=== PATIENT | male | born 1975 | race Caucasian/White ===

== ENCOUNTER → 2018-08-02 | Outpatient (CLI) | payer BC ==
--- NOTE | 2018-08-02 23:34 | CONS ---
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 The patient is coming in for a sleep apnea evaluation. This concern has been raised by his knowing that the patient snores and quits breathing on multiple occasions. He goes to bed around 11 p.m., wakes up 6:20 a.m. in the morning and he feels non refreshed, fatigued and tired during the day. His weight is up by around 10 pounds over the past 10 years. His current Roby score of 12. No history of any motor vehicle accident because of feeling drowsy or sleepy. He has never been involved in a car accident. He has not veered off the road because of feeling sleepy. No restlessness in lower extremities. No sleep paralysis. No hallucinations. No cataplexy. No other complaints in terms of his sleep in general. PAST MEDICAL HISTORY: 1. Chronic back pain. The patient has undergone pain shots and previous back surgery. 2. Hyperlipidemia. PAST SURGICAL HISTORY: Includes laminectomy L5-S1 and previous cortisone injection to his spine. DRUG ALLERGIES: NAPROSYN. OUTPATIENT MEDICATION: Includes Crestor and fenofibrate. SOCIAL HISTORY: Nonsmoker. No history of alcohol. No history of IV drugs. FAMILY HISTORY: Negative for sleep apnea. REVIEW OF SYSTEMS: Fourteen-point review of system was done and the positive findings are mentioned above in history of present illness. PHYSICAL EXAMINATION: His BP is 135/94, pulse 82, respirations 16, temp 98.3, saturation 96% on room air. Neck size is 18.5 inches, Roby score of 12. BMI 34.4, and height is 6 feet 1 inch. GENERAL APPEARANCE: Calm comfortable head is atraumatic, normocephalic. NECK: Supple. No JVD. No goiter or neck mass. Mallampati class IV. LUNGS: Clear to auscultation. HEART: Sounds regular rate and rhythm. Normal S1, S2. No S3. No murmur. ABDOMEN: Soft, nontender. No organomegaly. EXTREMITIES: No edema. No cyanosis or clubbing. NEUROLOGIC: Alert and oriented x3. No focal neurological deficits. PSYCHIATRIC: Negative for anxiety or depression. IMPRESSION: 1. Loud snoring. 2. Witnessed apneas. 3. Chronic fatigue and sleepiness Roby Score is at 12. 4. Obesity BMI 34.4. 5. Chronic back pain. 6. Hyperlipidemia. PLAN: 1. Encourage weight loss. 2. Implement good sleep hygiene measures. 3. Proceed with a home sleep study to investigate the patient for sleep breathing disorder and treat accordingly. YULY / TATI: [id number] /
== END ==
LOC: SLEEP 14:22
PROVIDERS: ATTEND Internal Medicine Critical Care Medicine
DX: R06.83 Snoring (principal); E66.01 Morbid (severe) obesity due to excess calories; G89.29 Other chronic pain; M54.9 Dorsalgia, unspecified; E78.5 Hyperlipidemia, unspecified; R06.81 Apnea, not elsewhere classified; R53.82 Chronic fatigue, unspecified; Z68.34 Body mass index [BMI] 34.0-34.9, adult; Z79.899 Other long term (current) drug therapy; Z88.8 Allergy status to other drugs, medicaments and biological substances
CPT/HCPCS: 99211

== ENCOUNTER → 2018-11-22 | Outpatient (CLI) | payer BC ==
--- NOTE | 2018-11-22 18:23 | PN ---
PROGRESS NOTE This is a compliancy check. This is a 43-year-old male patient diagnosed having severe symptomatic obstructive sleep apnea with an AHI of 30.4, worse in the supine body position. The patient was offered BiPAP therapy. I reviewed the CPAP titration closely. The patient underwent CPAP titration and he failed CPAP therapy, as the patient had a significant number of central apneas emerging while on CPAP along with sleep fragmentation and severe nocturnal oxygen desaturation. Ultimately he was switched to a BiPAP and currently has an auto BiPAP with a minimum pressure of 10, maximum pressure of 20, pressure support of 4. His treatment has been extremely successful and the patient improved. Today he is coming in for a compliancy check. He reports marked improvement in sleep quality. He is much more refreshed and alert during the day. He wakes up alert. No tiredness. No fatigue. Initially he was having some issues with his DreamWear [id number] mask. He was switched to an AirFit N10 nose mask. Furthermore, I offered him the Nuance nose gel pillows. On the compliance data, the patient has been averaging around 7.3 hours of CPAP use per night. His CPAP use for more than 4 hours is more than 80%. Average pressure of 15.2/11.2. His leak is improving. It was as high as 54 L/minute and is currently improved. AHI is down to 3.8. Tidal volume is at 560. He has no specific complaints and he feels great. REVIEW OF SYSTEMS: Fourteen-point review of systems was done. Positive findings are all mentioned above in the history of present illness. No recent weight gain. No tiredness or sleepiness during the day. He feels much more refreshed. No altered mentation. No headaches. No nausea. No heartburn. No chest pain. No shortness of breath. No palpitations. No other complaints otherwise. One issue only is development of some nasal congestion and purulent nasal drainage along with some facial pain that occurred over the past few days. This may be related to a component of acute sinus infection. He is not having any fever for now. PHYSICAL EXAMINATION: VITAL SIGNS: BP is 109/68, pulse 69, respirations 16. Saturation is 97% on room air. Temperature 98.1. [place] score is 4. Weight is 255. GENERAL APPEARANCE: Calm, comfortable. HEAD: Atraumatic, normocephalic. NECK: Supple. No JVD. No goiter or neck masses. LUNGS: Clear to auscultation. HEART: Heart sounds are regular rate and rhythm. Normal S1, S2. No S3, S4. No murmurs. ABDOMEN: Soft, nontender. No organomegaly. EXTREMITIES: No edema. No cyanosis or clubbing. NEUROLOGIC: The patient is alert and oriented x3. There are no focal neurological deficits. PSYCHIATRIC: Negative for anxiety or depression. IMPRESSION: 1. Severe obstructive sleep apnea with an apnea/hypopnea index of 30.4. The patient currently is undergoing successful CPAP therapy. 2. Chronic hypersomnia, improved. 3. Chronic back pain. 4. Hyperlipidemia. PLAN: Continue VPAP auto at the same setting. Compliance data was checked. Numbers look great. Patient is very compliant. Treatment is successful. No need for any pressure adjustments. Offer this patient Nuance nose gel pillows. Contact me back if there are any issues with CPAP therapy. Will see him back in a year's time in followup. MMODL / IJN: [id number] /
== END ==
LOC: SLEEP 15:18
PROVIDERS: ATTEND Internal Medicine Critical Care Medicine
DX: G47.33 Obstructive sleep apnea (adult) (pediatric) (principal); G89.29 Other chronic pain; M54.9 Dorsalgia, unspecified; E78.5 Hyperlipidemia, unspecified; Z99.89 Dependence on other enabling machines and devices

== ENCOUNTER 2019-03-17 12:59 | Day surgery (SDC) | payer BC ==
[2019-03-17] MEDS ORDERED: LACTATED RINGERS 1,000 ML IV ONE ×3 (14:42→23:19)
[2019-03-17] MEDS ORDERED: LIDOCAINE 1% 20 ML VIAL (10MG/ML) FOR IV START INTRADERMA ONE (14:42)
[2019-03-17] MEDS: ONDANSETRON 4 MG/2 ML VIAL IVP ONE (15:31)
[2019-03-17] MEDS ORDERED: DEXAMETHASONE SOD PHOSPHATE 10 MG/ML 1 ML VIAL IV ONE (15:31)
[2019-03-17] MEDS ORDERED: fentaNYL (PF) 50 MCG/ML 2 ML AMP IVP ONE ×2 (15:41→16:30)
[2019-03-17] MEDS ORDERED: MIDAZOLAM 2 MG/2 ML VIAL IVP ONE (16:27)
--- NOTE | 2019-03-17 17:00 | P.ANPRN ---
Procedure Note - Anesthesia - Nerve Block Performed Left Axillary Single Time Out Performed: Yes Date of Procedure: 03/17/19 Procedure Start Time: 16:26 Procedure Stop Time: 16:40 Location of Patient: PreOp Indication: Requested by Surgeon Specifically requested for management of pain by DrKatrina: Magen Davies Sedation Type: Sedate with meaningful contact maintained Preparation: Sterile Prep Position: Supine Needle Types: Pajunk Needle Gauge: 21 Ultrasound used to visualize needle placement: Yes Ultrasound used to observe medication spread: Yes Injectate: 0.5% Ropivacaine (see comment for volume) (30 ml) Blood Aspirated: No Pain Paresthesia on Injection Noted: No Resistance on Injection: Normal Image Stored and Saved: Yes Events: Uneventful and Well Tolerated
[2019-03-17] MEDS ORDERED: fentaNYL (PF) 50 MCG/ML 2 ML AMP ONE (20:22)
[2019-03-17] MEDS ORDERED: MIDAZOLAM 2 MG/2 ML VIAL ONE (20:22)
[2019-03-17] MEDS ORDERED: ROPIVACAINE 5 MG/ML 30 ML VIAL ONE (20:22)
[2019-03-17] MEDS ORDERED: SUCCINYLCHOLINE CHLORIDE VIAL 200 MG/10 ML VIAL IV ONE (20:22)
[2019-03-17] MEDS ORDERED: ceFAZolin 1,000 MG VIAL ONE (20:22)
[2019-03-17] MEDS ORDERED: PROPOFOL 10 MG/ML 20 ML VIAL IV ONE (20:22)
[2019-03-17] MEDS ORDERED: LIDOCAINE 1% INJ 10MG/ML (20 ML MDV) ONE (20:22)
[2019-03-17] MEDS ORDERED: KETOROLAC 30 MG/ML 1 ML VIAL ONE (20:22)
[2019-03-17] MEDS ORDERED: ROPIVACAINE 5 MG/ML 30 ML VIAL MISCELLANE ONE (21:06)
[2019-03-17] MEDS ORDERED: LIDOCAINE 1%-EPI 1:100,000 20 ML VIAL SQ ONE (21:06)
[2019-03-17] MEDS ORDERED: SODIUM CHLORIDE 0.9% 100 ML with ceFAZolin 2,000 MG IV ONE ×2 (23:43)
[2019-03-18 01:52] VITALS: RESP 16
[2019-03-18] MEDS: ONDANSETRON 4 MG/2 ML VIAL IVP ONE (02:15)
[2019-03-18 04:44] VITALS: BP 130/69; PULSE 68; TEMP 98.7
--- NOTE | 2019-03-18 06:06 | XR ---
FLUOROSCOPY 2 minutes and 5 seconds of fluoroscopy time were utilized during internal fixation of the left wrist. 2 images document the procedure.
--- NOTE | 2019-03-19 17:04 | P.OP ---
Date of Procedure: 03/18/19 Preoperative Diagnosis: Comminuted intra-articular left distal radius fracture Postoperative Diagnosis: Comminuted intra-articular left distal radius fracture Procedure(s) Performed: Open reduction and internal fixation of comminuted intra-articular left distal radius fracture (greater than 3 parts) Implants: Acumed Acu-Loc 2 standard left locking volar distal radius plate with locking and cortical screws; one Frag-loc compression sleeve and long compression screw Anesthesia: ROYCE, regional Surgeon: Magen Davies Transistor Tester #1: Bell García Estimated Blood Loss (ml): 25 Condition: stable Disposition: PACU Indications for Procedure: The patient is a pleasant 44-year-old male who 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 He sustained a comminuted, displaced intra-articular left distal radius fracture. Treatment options (and associated risks and benefits) were discussed in the office. Surgical treatment was recommended. In preop, the patient denied any additional questions or concerns and wished to proceed with surgery. Consent forms were signed. The operative site was confirmed and marked. Description of Procedure: The patient was administered a regional nerve block by the anesthesia team and was then brought to the operating suite. He was positioned supine with the operative limb on a hand table. All bony prominences were well-padded. Anesthesia was administered uneventfully. Prophylactic IV antibiotics were administered. A tourniquet was placed on the left arm, which was then prepped and draped in standard, sterile fashion. A timeout was performed, confirming patient identifiers, the operative side, the site and the procedure to be performed: all team members expressed agreement. The limb was exsanguinated with an Esmarch and the tourniquet was inflated. A volar FCR approach was utilized. The skin was sharply incised, curving gently across the volar wrist crease. The subcutaneous tissues were spread, coagulating superficial vessels as needed. The radial artery was identified and protected throughout the case. The FCR sheath was incised and the tendon was mobilized. The floor of the sheath was released. The surrounding muscles and subcutaneous tissues were markedly edematous. Blunt, finger dissection proceeded down to the pronator quadratus. The fracture had created a traumatic, transverse laceration in the muscle belly. This was sharply extended proximally along the radial border and the muscle was subperiosteally elevated in an ulnar direction. The fracture site was visualized. There were separate fragments of the radial styloid and lunate fossa. Preop CT scan demonstrated comminution of both the metaphysis and radial styloid, as well as a separate wedge fragment involving Listers tubercle and large portion of the central dorsal metaphysis. A separate fragment of the volar metaphysis was also identified intraoperatively. A 0.062 K wire was inserted percutaneously into the radial styloid. A manual reduction maneuver was applied, using combination of axial traction, ulnar deviation and palmar translation. Held in this position, the K wire was advanced across the fracture site and into the metaphysis. This did not afford sufficient stability and a second wire was inserted in a slightly different trajectory. Residual depression of the central articular surface remained. A [place] was inserted through the volar metaphyseal window to elevate and hold the articular surface. A third K wire was driven transversely across the radius to suspend the articular surface and provisionally secure the lunate fossa fragment. The reduction was confirmed with intraoperative fluoroscopy. The plate was selected, based on the patients anatomy and fracture pattern, and was positioned on the volar radius. It was provisionally pinned in place with K-wires and position was confirmed on imaging. There was residual widening between the radial and intermediate columns. The oblique K wires in the styloid were backed out and the distal wires holding the plate were removed. A pointed reduction clamp was placed around the lunate fossa fragment and clamped to the base of the radial styloid, which helped reduce the diastasis. The provisional K wires were reinserted to secure the plate distally. A cortical screw was drilled, measured and inserted into the most proximal hole of the shaft. Distal locking screws were drilled, measured and inserted into the radial styloid and sigmoid notch fragments, confirming length and trajectory with imaging. An additional cortical screw was drilled, measured and inserted to secure the plate to the metaphysis. Residual widening of the dorsal metaphysis was noted on the lateral view - this did reduce with manual pressure. The decision was made to perform a limited dorsal exposure. A midline, longitudinal incision was marked over the dorsal radius. The skin was sharply incised and superficial veins were mobilized. Spreading dissection was used to expose the extensor retinaculum. A small longitudinal incision was made in the retinaculum. The EPL tendon was identified and retracted to expose the dorsal radius. The displaced fragment was mobilized and reduced. A large pointed reduction clamp was placed on the dorsal fragment, under direct visualization to ensure no tendon entrapment. This was then clamped to the plate through the volar exposure. The central hole in the distal row was selected. A 2.0 mm drill was inserted and advanced bicortically. The length was measured and a long Frag-loc compression screw was selected. The 2.5 mm drill was advanced unicortically through the Frag-loc drill guide to a positive stop. The compression sleeve was then inserted and screwed into the plate. A guidewire was advanced through the sleeve and out the dorsal wound, taking care to protect the extensor tendons. The long compression screw was inserted dorsally over the guidewire and advanced until seated on the dorsal cortex. Excellent compression was achieved. The guidewire was removed. Repeat imaging demonstrated good reduction of the dorsal fragment. The provisional and percutaneous K-wires were removed. Final x-rays were obtained which revealed satisfactory reduction of the fracture. A 20 inclined lateral view was obtained, confirming extra-articular screw placement. The wrist was then ranged under live fluoroscopy - no motion of the fracture fragments or fixation construct was appreciated. There was no crepitus or gross instability. The tourniquet was released after 120 minutes at 250 mmHg and was not used for the remainder of the case. Good hemostasis was obtained with held pressure and electrocautery. Antibiotics were redosed intraoperatively. The wound was thoroughly irrigated with normal saline. The pronator quadratus positioned over the plate and loosely sutured in place but was not formally repaired. The transitional fiber zone and extensor retinaculum were repaired with interrupted 2-0 Vicryl sutures. There was significant edema throughout the volar tissues. Retention sutures (nojp-szm-zvw-near configuration) of 2-0 Prolene were sequentially inserted from the outer edges of the incision, which dispersed the tension and allowed excellent approximation of the skin edges. Both the volar and dorsal incisions were closed with interrupted 3-0 Prolene sutures. Due to the amount of edema, no local anesthetic was added. A sterile dressing w as applied followed by a resting volar plaster splint. All sponge, needle and instrument counts were correct at the end of the case. The patient tolerated the procedure well and was taken to the recovery room in stable condition.
--- NOTE | 2019-03-20 08:56 | FL ---
Fluoroscopy History: OR 14 seconds fluoroscopic time.
== END 2019-03-18 04:30 | disposition home or self-care (01) ==
LOC: OR 12:59 → 4SSUR 03-18 01:33 → OR 03-18 04:30
PROVIDERS: ATTEND Orthopaedic Surgery
DX: S52.572A Other intraarticular fracture of lower end of left radius, initial encounter for closed fracture (principal); S60.812A Abrasion of left wrist, initial encounter; E78.5 Hyperlipidemia, unspecified; G47.33 Obstructive sleep apnea (adult) (pediatric); Z79.899 Other long term (current) drug therapy; Z79.891 Long term (current) use of opiate analgesic; Z97.3 Presence of spectacles and contact lenses; Z98.890 Other specified postprocedural states; Z83.3 Family history of diabetes mellitus; Z82.49 Family history of ischemic heart disease and other diseases of the circulatory system; W11.XXXA Fall on and from ladder, initial encounter
CPT/HCPCS: 25609; 64417; 76942; 73100; C1713; J2250; J0330; J1100; J0690 ×2; J2405; J2001; J3010; J1885; J2795; J2704; 64415

== ENCOUNTER → 2019-03-17 | Outpatient (CLI) | payer BC ==
--- NOTE | 2019-03-17 17:10 | CT ---
EXAMINATION TYPE: CT wrist LT wo con DATE OF EXAM: 03/17/2019 HISTORY: Left wrist injury yesterday. COMPARISON: None CT DLP: 232 mGycm. Automated Exposure Control for Dose Reduction was Utilized. TECHNIQUE: Axial images 3 mm thick sections. Reconstructed images in the coronal and sagittal planes. Three-D reconstructed images performed by the technologist are reviewed. FINDINGS: There is a comminuted fracture the distal metaphyseal radius. This extends into the articular surface with some diastases of the fracture fragments. The ulnar styloid appears intact. Scapholunate space appears normal. There is a fracture of the ulnar aspect of the trapezium. No additional fractures are identified IMPRESSION: 1. Comminuted fracture distal metaphyseal radius with intra-articular extension. 2. Fracture of the medial aspect trapezius at the base of the first metatarsal.
== END | disposition home or self-care (01) ==
LOC: RADCTMAIN 13:28
PROVIDERS: ATTEND Orthopaedic Surgery
DX: S59.202A Unspecified physeal fracture of lower end of radius, left arm, initial encounter for closed fracture (principal); S62.172A Displaced fracture of trapezium [larger multangular], left wrist, initial encounter for closed fracture

== ENCOUNTER → 2021-09-16 | Outpatient (CLI) | payer BC ==
--- NOTE | 2021-09-16 14:25 | P.PN ---
Subjective Progress Note Date: 09/16/21 46-year-old male patient coming in for a follow-up regarding obstructive sleep apnea. I diagnosed this patient having obsessive sleep apnea many years back and his last evaluation was in 11/22/2018. Over this past on a half years, the patient is on extremely well to note that the patient has severe ELOISA with an AHI of 30.4 and the patient has been using a VPAP auto at a minimum pressure of 10 and a max impression of 20 with a pressure support of 4. I checked the compliance data on this patient's machine. The patient is doing very well for now. The patient is using the machine every night and is compliant to for more than hours of usage is around 100% and the patient has been averaging around 8 point hours of VPAP use per night. Average pressure delivered by the machine Is around 14.7 over 10.7. Leak is in order of 30 L per minute. The tidal volume generated is around 520 with a respiratory rate of 16 and a minute ventilation of 8.6 L per minute. AHI while on treatment is down to 0.9 indicating successful treatment the patient reports no major hypersomnia or sleepiness during the day and he is very well treated this point in time. He is using a Nuance pro nasal pillow and he is requesting also refill in the supplies. His weight is up by around 12 pounds since his last evaluation. Objective - Exam BP is 150/93 with a pulse of 60 and a respiration of 16 and a weight of 267 neck is 17.5 inches and temperature 98.1 with a pulse ox of 100% on room air oxygen. The patient appeared well nourished and normally developed. Vital signs as documented. Head exam is unremarkable. No scleral icterus or corneal arcus noted. Neck is without jugular venous distension, thyromegaly, or carotid bruits. Carotid upstrokes are brisk bilaterally. Lungs are clear to auscultation and percussion. Cardiac exam reveals the PMI to be normally sized and situated. Rhythm is regular. First and second heart sounds normal. No murmurs, rubs or gallops. Abdominal exam reveals normal bowel sounds, no masses, no organomegaly and no aortic enlargement. Extremities are nonedematous and both femoral and pedal pulses are normal.Examination of the skin revealed no evidence of significant rashes, suspicious appearing nevi or other concerning lesion s.Neurologically, the patient is awake and alert and the patient does not have any focal neurological deficit. Cranial nerves are essentially intact. Assessment and Plan Plan: Severe symptomatically obstructive sleep apnea with an AHI of 30.4. The patient has been successfully treated with a VPAP auto Chronic hypersomnia, recovered Obesity with interval 12 pound weight gain in the current weight is around 267 with a body mass index of 35 Hyperlipidemia Chronic back pain Plan Patient has a functioning VPAP unit. No changes in the pressure setting will be done. Compliance data was checked. No need for any further adjustments. The patient is doing extremely well. Supplies will be refilled. Encourage weight loss. Sleep hygiene measures are all good. The patient will see me back in few years time in follow-up. No other active issues for now. Comorbid conditions are all stable.
== END ==
LOC: SLEEP 13:01
PROVIDERS: ATTEND Internal Medicine Critical Care Medicine
DX: G47.33 Obstructive sleep apnea (adult) (pediatric) (principal); E66.9 Obesity, unspecified; E78.5 Hyperlipidemia, unspecified; G89.29 Other chronic pain; Z68.35 Body mass index [BMI] 35.0-35.9, adult; M54.50 Low back pain, unspecified; Z99.89 Dependence on other enabling machines and devices

== ENCOUNTER 2021-11-12 14:34 | Inpatient (IN) | payer BC ==
[2021-11-12] MEDS ORDERED: ONDANSETRON 4 MG/2 ML VIAL IVP STA (19:07)
[2021-11-12] MEDS ORDERED: SODIUM CHLORIDE 0.9% 1,000 ML IV STA ×2 (19:07→20:43)
[2021-11-12] MEDS ORDERED: HYDROmorphone 0.5 MG/0.5 ML SYRINGE IVP STA (19:07)
--- NOTE | 2021-11-12 19:32 | ED ---
Abdominal Pain HPI - General Chief Complaint: Abdominal Pain Stated Complaint: kidney stones Time Seen by Provider: 11/12/21 18:58 Source: patient, family, RN notes reviewed Mode of arrival: ambulatory Limitations: no limitations - History of Present Illness Initial Comments: This is a 46-year-old male who presents to the emergency department with possib le kidney stones. Patient states that he was in the emergency department in [place], [place] 2 days ago. At that time he had left flank pain. An ultrasound, lab work, and urinalysis were obtained. However, they did not have a computed tomography scan available. The physician at the time believes that he had a kidney stone and discharged him with prescriptions for Climax, Flomax, and Zofran. Patient states that the pain has not gotten better and is not improving with the Climax. Also states that he has little to no appetite. He does state that the pain is moving and is now more so in the left groin area. Denies any history of kidney stones. Denies any fevers, chills, sore throat, cough, dyspnea, chest pain, palpitations, vomiting, diarrhea, or headaches. MD Complaint: abdominal pain Onset/Timin -: days(s) Location: LLQ, L flank Associated Symptoms: nausea - Related Data Home Medications Medication Instructions Recorded Confirmed Celecoxib [CeleBREX] 200 mg PO HS PRN 03/17/19 11/12/21 Fenofibrate,Micronized 134 mg PO BID 03/17/19 11/12/21 [Fenofibrate] Rosuvastatin Calcium [Crestor] 40 mg PO HS 03/17/19 11/12/21 HYDROcodone/APAP 5-325MG [[place] 1 tab PO Q4HR PRN 11/12/21 11/12/21 5-325] Ondansetron Odt [Zofran Odt] 4 mg PO Q4H PRN 11/12/21 11/12/21 Tamsulosin [Flomax] 0.4 mg PO HS 11/12/21 11/12/21 Allergies Allergy/AdvReac Type Severity Reaction Status Date / Time No Known Allergies Allergy Verified 11/12/21 21:21 Review of Systems ROS Statement: Those systems with pertinent positive or pertinent negative responses have been documented in the HPI. ROS Other: All systems not noted in ROS Statement are negative. Past Medical History Past Medical History: Hyperlipidemia Additional Past Medical History / Comment(s): Kidney Stones History of Any Multi-Drug Resistant Organisms: None Reported Past Surgical History: Orthopedic Surgery Additional Past Surgical History / Comment(s): Back Past Psychological History: No Psychological Hx Reported Smoking Status: Never smoker Past Alcohol Use History: None Reported Past Drug Use History: None Reported General Exam Limitations: no limitations General appearance: alert, in no apparent distress Head exam: Present: atraumatic, normocephalic, normal inspection Respiratory exam: Present: normal lung sounds bilaterally. Absent: respiratory distress, wheezes, rales, rhonchi, stridor Cardiovascular Exam: Present: regular rate, normal rhythm, normal heart sounds. Absent: systolic murmur, diastolic murmur, rubs, gallop, clicks GI/Abdominal exam: Present: soft, tenderness (LLQ), normal bowel sounds. Absen t: distended, guarding, rebound, rigid Back exam: Present: CVA tenderness (L). Absent: CVA tenderness (R) Neurological exam: Present: alert, oriented X3, CN II-XII intact Psychiatric exam: Present: normal affect, normal mood Skin exam: Present: warm, dry, intact, normal color. Absent: rash Course Vital Signs 11/12/21 11/12/21 14:45 19:29 Temperature 98.6 F 97.6 F Pulse Rate 85 75 Respiratory 20 16 Rate Blood Pressure 130/76 138/95 O2 Sat by Pulse 96 95 Oximetry Medical Decision Making - Medical Decision Making This is a 46-year-old male who presents to the emergency department for left flank and left lower quadrant pain. Lab work reveals a mild DELORES and leukocytosis. Computed tomography scan of the abdomen and pelvis was obtained, this revealed mild left hydroureteronephrosis with a secondary 6 mm obstructing renal calculus in the distal left ureter. There is also free fluid of the left kidney which may be secondary to a possible ruptured left calyx. I spoke with Dr. Long, urology regarding these findings, and he states that the ruptured calyx should heal on its own. He is agreeable to admission for IV antibiotics and pain control. Patient was started on IV ceftriaxone. Pain is well controlled with Dilaudid. Will also make sure the patient continues the Flomax. Patient will be admitted to medicine with urology as a consult. This case was discussed in detail with the attending ED physician. Presentation, findings, and treatment plan discussed in detail as well. - Lab Data Result diagrams: 11/12/21 19:25 11/12/21 19:25 Lab Results 11/12/21 11/12/21 11/12/21 Range/Units 19:25 19:25 19:25 WBC 14.2 H (3.8-10.6) k/uL RBC 4.72 (4.30-5.90) m/uL Hgb 14.4 (13.0-17.5) gm/dL Hct 42.7 (39.0-53.0) % MCV 90.4 (80.0-100.0) fL MCH 30.4 (25.0-35.0) pg MCHC 33.6 (31.0-37.0) g/dL RDW 13.3 (11.5-15.5) % Plt Count 210 (150-450) k/uL MPV 7.5 Neutrophils % 86 % Lymphocytes % 8 % Monocytes % 5 % Eosinophils % 0 % Basophils % 0 % Neutrophils # 12.2 H (1.3-7.7) k/uL Lymphocytes # 1.2 (1.0-4.8) k/uL Monocytes # 0.7 (0-1.0) k/uL Eosinophils # 0.0 (0-0.7) k/uL Basophils # 0.0 (0-0.2) k/uL Sodium 134 L (137-145) mmol/L Potassium 4.1 (3.5-5.1) mmol/L Chloride 94 L (98-107) mmol/L Carbon Dioxide 26 (22-30) mmol/L Anion Gap 14 mmol/L BUN 21 H (9-20) mg/dL Creatinine 1.60 H (0.66-1.25) mg/dL Est GFR (CKD-EPI)AfAm 58 (>60 ml/min/1.73 sqM) Est GFR (CKD-EPI)NonAf 50 (>60 ml/min/1.73 sqM) Glucose 131 H (74-99) mg/dL Calcium 9.4 (8.4-10.2) mg/dL Total Bilirubin 0.9 (0.2-1.3) mg/dL AST 23 (17-59) U/L ALT 32 (4-49) U/L Alkaline Phosphatase 40 (38-126) U/L Total Protein 7.3 (6.3-8.2) g/dL Albumin 4.6 (3.5-5.0) g/dL Urine Color Light Yellow Urine Appearance Clear (Clear) Urine pH 6.0 (5.0-8.0) Ur Specific [place] 1.008 (1.001-1.035) Urine Protein Negative (Negative) Urine Glucose (UA) Negative (Negative) Urine Ketones Negative (Negative) Urine Blood Small H (Negative) Urine Nitrite Negative (Negative) Urine Bilirubin Negative (Negative) Urine Urobilinogen <2.0 (<2.0) mg/dL Ur Leukocyte Esterase Negative (Negative) Urine RBC <1 (0-5) /hpf Urine WBC 1 (0-5) /hpf Ur Squamous Epith Cells <1 (0-4) /hpf - Radiology Data Radiology results: report reviewed, image reviewed Disposition Clinical Impression: Hydronephrosis, left, Hydronephrosis with obstructing calculus Disposition: ADMITTED IP TO THIS HOSP
[2021-11-12 19:41] LABS: Appearance,Urine Clear (Clear); Basophils % (A) 0 %; Bilirubin,Urine Negative (Negative); Blood,Urine Small (Negative); Color,Urine Light Yellow; Eosinophils % (A) 0 %; Glucose,Urine (UA) Negative (Negative); HCT 42.7 % (39.0-53.0); HGB 14.4 gm/dL (13.0-17.5); Ketones,Urine Negative (Negative); Leukocyte Esterase,Urine Negative (Negative); Lymphocytes # (A) 1.2 k/uL (1.0-4.8); Lymphocytes % (A) 8 %; MCH 30.4 pg (25.0-35.0); MCHC 33.6 g/dL (31.0-37.0); MCV 90.4 fL (80.0-100.0); Mean Platelet Volume 7.5; Monocytes # (A) 0.7 k/uL (0-1.0); Monocytes % (A) 5 %; Neutrophils # (A) 12.2 k/uL (1.3-7.7); Neutrophils % (A) 86 %; Nitrite,Urine Negative (Negative); Platelet Count 210 k/uL (150-450); Protein,Urine Negative (Negative); RBC 4.72 m/uL (4.30-5.90); RBC,Urine <1 /hpf (0-5); RDW 13.3 % (11.5-15.5); Specific Gravity,Urine 1.008 (1.001-1.035); Squamous Epithelial Cell,Urine <1 /hpf (0-4); Urobilinogen,Urine <2.0 mg/dL (<2.0); WBC 14.2 k/uL (3.8-10.6); WBC,Urine 1 /hpf (0-5)
[2021-11-12 19:54] LABS: Albumin 4.6 g/dL (3.5-5.0); Calcium 9.4 mg/dL (8.4-10.2); Potassium 4.1 mmol/L (3.5-5.1); Total Bilirubin 0.9 mg/dL (0.2-1.3); Total Protein 7.3 g/dL (6.3-8.2)
--- NOTE | 2021-11-12 20:00 | CT ---
EXAMINATION TYPE: CT abdomen pelvis wo con CT DLP: 1515.4 mGycm, Automated exposure control for dose reduction was used. DATE OF EXAM: 11/12/2021 7:52 PM COMPARISON: None CLINICAL INDICATION:Male, 46 years old with history of Left flank pain; flank pain. poss stone TECHNIQUE: Axial CT of the abdomen and pelvis. Sagittal and coronal reformats were created on a [employer] workstation. Contrast used: None Oral contrast used: without Oral Contrast FINDINGS: LOWER CHEST: Unremarkable ABDOMEN LIVER: Diffusely hypoattenuating parenchyma. GALLBLADDER AND BILE DUCTS: Layering increased densities within the lumen consistent with gallstones are present. PANCREAS: Unremarkable. SPLEEN: Unremarkable. ADRENAL GLANDS: Unremarkable. KIDNEYS AND URETERS: Mild left hydrocele versus secondary obstructing 6 mm calculus at the distal ure ter. There is additional nonobstructing bilateral renal calculi. Fluid collection around the left kid dunia is present measuring 17.3 x 6.8 x 2.3 cm along with streaky fat stranding changes. PELVIS BLADDER: Unremarkable REPRODUCTIVE: Unremarkable. ABDOMEN & PELVIS STOMACH AND BOWEL: No evidence of bowel obstruction. PERITONEUM: No evidence of pneumoperitoneum or free fluid. VASCULATURE: No evidence of aortic aneurysm. MUSCULOSKELETAL: No acute osseous abnormalities LYMPH NODES: No gross evidence for lymphadenopathy. SOFT TISSUE/ABDOMINAL WALL: Unremarkable IMPRESSION: 1. Mild left hydroureteronephrosis secondary obstructing 6 mm calculus at the distal left ureter. The re is free fluid on the left kidney which may represent secondary to a ruptured calyx. 2. Additional nonobstructing renal calculi bilaterally. 3. Hepatic steatosis. 4. Cholelithiasis/biliary sludge.
[2021-11-12] MEDS ORDERED: ONDANSETRON 4 MG/2 ML VIAL IVP PRN (20:57)
[2021-11-12] MEDS ORDERED: ACETAMINOPHEN TAB 325 MG TAB PO PRN (20:57)
[2021-11-12] MEDS ORDERED: NALOXONE 0.4 MG/ML 1 ML VIAL IV PRN (20:57)
[2021-11-12] MEDS: HYDROmorphone 0.5 MG/0.5 ML SYRINGE IVP PRN (21:31)
[2021-11-12] MEDS: TAMSULOSIN 0.4 MG CAP.ER.24H PO SCH (21:31)
[2021-11-12] MEDS: FENOFIBRATE 160 MG TAB PO SCH (22:26)
[2021-11-12] MEDS: ATORVASTATIN 80 MG TAB PO SCH (22:26)
[2021-11-13] MEDS: HYDROmorphone 0.5 MG/0.5 ML SYRINGE IVP PRN ×3 (00:56→20:48)
--- NOTE | 2021-11-13 04:40 | P.HPIM ---
History of Present Illness H&P Date: 11/12/21 Chief Complaint: abdominal pain 46-year-old male with prediabetes, hyperlipidemia Patient comes in with worsening left-sided abdominal pain. He was diagnosed with kidney stones 2 days ago however the facility he was at not have a CAT scan he was discharged with Flomax and [place] to help control his pain however he notes that these medications did nothing for his pain which was getting worse he denies any hematuria denies any dysuria denies any fevers or chills denies any nausea or vomiting denies any trouble breathing or chest pain. Denies any history of kidney stones In the emergency department computed tomography scan of the abdomen was done showed mild left hydronephrosis with 6 mm distal left ureteral stone. With free fluid around the kidney possibly ruptured left calyx. These findings were discussed with urology who will see the patient in the hospital. Recommended starting the patient on antibiotics Review of Systems Pertinent positives as noted in HPI. All other systems were reviewed and are negative Past Medical History Past Medical History: Hyperlipidemia Additional Past Medical History / Comment(s): Kidney Stones History of Any Multi-Drug Resistant Organisms: None Reported Past Surgical History: Orthopedic Surgery Additional Past Surgical History / Comment(s): Back Past Psychological History: No Psychological Hx Reported Smoking Status: Never smoker Past Alcohol Use History: None Reported Past Drug Use History: None Reported - Past Family History Family Additional Family Medical History / Comment(s): no kidney disease runs in the family Medications and Allergies Home Medications Medication Instructions Recorded Confirmed Type Celecoxib [CeleBREX] 200 mg PO HS PRN 03/17/19 11/12/21 History Fenofibrate,Micronized 134 mg PO BID 03/17/19 11/12/21 History [Fenofibrate] Rosuvastatin Calcium [Crestor] 40 mg PO HS 03/17/19 11/12/21 History HYDROcodone/APAP 5-325MG [[place] 1 tab PO Q4HR PRN 11/12/21 11/12/21 History 5-325] Ondansetron Odt [Zofran Odt] 4 mg PO Q4H PRN 11/12/21 11/12/21 History Tamsulosin [Flomax] 0.4 mg PO HS 11/12/21 11/12/21 History Allergies Allergy/AdvReac Type Severity Reaction Status Date / Time No Known Allergies Allergy Verified 11/12/21 21:21 Physical Exam Vitals: Vital Signs Temp Pulse Resp BP Pulse Ox 11/12/21 19:29 97.6 F 75 16 138/95 95 11/12/21 14:45 98.6 F 85 20 130/76 96 Intake and Output 11/12/21 11/12/21 11/12/21 06:59 14:59 22:59 Other: Weight 117.934 kg Constitutional: No acute distress, conversant, pleasant Eyes: Anicteric sclerae, moist conjunctiva, Pupils equal round reactive to light ENMT: NC/AT Oropharynx clear, no erythema, or exudates Neck: Supple, no masses, or JVD No carotid bruits No thyromegaly Lungs: Clear to auscultation Clear to percussion Normal respiratory effort, no accessory muscle use Cardiovascular: Heart regular in rate and rhythm, No murmurs, gallops, or rubs No peripheral edema Abdominal: Soft Nontender, no tenderness to tapping over the CVA,no guarding, rebound or rigidity Abdomen moving with respiration Normoactive bowel sounds No hepatomegaly, No splenomegaly No palpable mass No abdominal wall hernia noted Skin: Normal temperature, tone, texture, turgor No induration No subcutaneous nodules No rash, lesions No ulcers Extremities: No digital cyanosis No clubbing Pedal pulses intact and symmetrical Radial pulses intact and symmetrical No calf tenderness Psychiatric: Alert and oriented to person, place and time Appropriate affect fair judgement Neuro Muscles Strength 5/5 in all 4 extremities Sensation to light touch grossly present throughout Cranial nerves II-XII grossly intact No focal sensory deficits Lymphatics: no palpable cervical or supraclavicular , or inguinal lymph nodes Results CBC & Chem 7: 11/12/21 19:25 11/12/21 19:25 Labs: Abnormal Lab Results - Last 24 Hours (Table) 11/12/21 11/12/21 11/12/21 Range/Units 19:25 19:25 19:25 WBC 14.2 H (3.8-10.6) k/uL Neutrophils # 12.2 H (1.3-7.7) k/uL Sodium 134 L (137-145) mmol/L Chloride 94 L (98-107) mmol/L BUN 21 H (9-20) mg/dL Creatinine 1.60 H (0.66-1.25) mg/dL Glucose 131 H (74-99) mg/dL Urine Blood Small H (Negative) Assessment and Plan Assessment: mild left hydronephrosis Obstructive left ureteral stone Ruptured left calyx Urology consult Next with hydration normal saline Pain control with opiates Follow-up cultures Patient initiated on antibiotics with Rocephin Strain urine Acute kidney injury secondary to obstructive uropathy Avoid nephrotoxic meds IV fluid hydration Monitor urine output Monitor renal function Hyperlipidemia resume statin Full code DVT prophylaxis heparin subcu 3 times a day
[2021-11-13 07:05] LABS: Basophils % (A) 0 %; Eosinophils % (A) 0 %; HCT 39.8 % (39.0-53.0); HGB 13.2 gm/dL (13.0-17.5); Lymphocytes # (A) 1.7 k/uL (1.0-4.8); Lymphocytes % (A) 15 %; MCH 30.3 pg (25.0-35.0); MCHC 33.3 g/dL (31.0-37.0); MCV 90.9 fL (80.0-100.0); Mean Platelet Volume 7.4; Monocytes # (A) 0.8 k/uL (0-1.0); Monocytes % (A) 7 %; Neutrophils # (A) 8.7 k/uL (1.3-7.7); Neutrophils % (A) 76 %; Platelet Count 204 k/uL (150-450); RBC 4.37 m/uL (4.30-5.90); RDW 13.3 % (11.5-15.5); WBC 11.5 k/uL (3.8-10.6)
[2021-11-13] MEDS: HYDROmorphone 1 MG/ML 1 ML SYRINGE IVP PRN ×2 (07:19→10:08)
[2021-11-13 07:20] LABS: Albumin 3.8 g/dL (3.5-5.0); Calcium 8.9 mg/dL (8.4-10.2); Total Bilirubin 0.8 mg/dL (0.2-1.3); Total Protein 6.4 g/dL (6.3-8.2)
[2021-11-13] MEDS: HEPARIN SODIUM,PORCINE/PF 5,000 UNIT/0.5 ML SYRINGE SQ SCH ×2 (08:04→10:36)
[2021-11-13] MEDS: FENOFIBRATE 160 MG TAB PO SCH ×2 (08:08→20:49)
--- NOTE | 2021-11-13 08:36 | P.GSCN ---
History of Present Illness Consult date: 11/13/21 Reason for Consult: Left ureteral stone History of present illness: This is a 46-year-old male admitted to the hospital with a 6 mm left-sided ureteral stone, causing mild hydronephrosis and evidence of forniceal rupture. This is his second ER presentation with flank pain. Initially presented to [place] and was discharged home with pain medications, he presented to [facility] yesterday with intractable pain. Indicated the patient is was associated with nausea. Denies any dysuria or gross hematuria, fevers or chills. No previous history of stone. Denies any family history of stone. Indicates she still having pain this morning. Review of Systems - Constitutional Denies fever, Denies weight loss - EENT Ears, nose, mouth and throat: Denies dysphagia - Cardiovascular Denies chest pain, Denies shortness of breath - Respiratory Denies cough, Denies 7 - Gastrointestinal Reports as per HPI - Genitourinary Reports flank pain - Integumentary Denies rash, Denies unusual bruising - Neurological Denies headaches, Denies syncope Past Medical History Past Medical History: Hyperlipidemia Additional Past Medical History / Comment(s): Kidney Stones History of Any Multi-Drug Resistant Organisms: None Reported Past Surgical History: Orthopedic Surgery Additional Past Surgical History / Comment(s): Back Past Psychological History: No Psychological Hx Reported Smoking Status: Never smoker Past Alcohol Use History: None Reported Past Drug Use History: None Reported - Past Family History Family Additional Family Medical History / Comment(s): no kidney disease runs in the family Medications and Allergies Home Medications Medication Instructions Recorded Confirmed Type Celecoxib [CeleBREX] 200 mg PO HS PRN 03/17/19 11/12/21 History Fenofibrate,Micronized 134 mg PO BID 03/17/19 11/12/21 History [Fenofibrate] Rosuvastatin Calcium [Crestor] 40 mg PO HS 03/17/19 11/12/21 History HYDROcodone/APAP 5-325MG [[place] 1 tab PO Q4HR PRN 11/12/21 11/12/21 History 5-325] Ondansetron Odt [Zofran Odt] 4 mg PO Q4H PRN 11/12/21 11/12/21 History Tamsulosin [Flomax] 0.4 mg PO HS 11/12/21 11/12/21 History Allergies Allergy/AdvReac Type Severity Reaction Status Date / Time No Known Allergies Allergy Verified 11/12/21 21:21 Surgical - Exam Vital Signs Temp Pulse Resp BP Pulse Ox 98.6 F 85 20 130/76 96 11/12/21 14:45 11/12/21 14:45 11/12/21 14:45 11/12/21 14:45 11/12/21 14:45 - General no distress, moderate pain - Eyes normal ocular movement, no pale - ENT normal nares, normal mucosa - Respiratory normal expansion, normal respiratory effort - Abdomen Abdomen: soft, tender (Left flank) - Psychiatric oriented to time, oriented to person, oriented to place Results - Labs 11/13/21 06:38 11/13/21 06:38 Abnormal Lab Results - Last 24 Hours (Table) 11/12/21 11/12/21 11/12/21 Range/Units 19:25 19:25 19:25 WBC 14.2 H (3.8-10.6) k/uL Neutrophils # 12.2 H (1.3-7.7) k/uL Sodium 134 L (137-145) mmol/L Chloride 94 L (98-107) mmol/L BUN 21 H (9-20) mg/dL Creatinine 1.60 H (0.66-1.25) mg/dL Glucose 131 H (74-99) mg/dL Alkaline Phosphatase (38-126) U/L Urine Blood Small H (Negative) 11/13/21 11/13/21 Range/Units 06:38 06:38 WBC 11.5 H (3.8-10.6) k/uL Neutrophils # 8.7 H (1.3-7.7) k/uL Sodium 133 L (137-145) mmol/L Chloride (98-107) mmol/L BUN (9-20) mg/dL Creatinine 1.36 H (0.66-1.25) mg/dL Glucose 123 H (74-99) mg/dL Alkaline Phosphatase 37 L (38-126) U/L Urine Blood (Negative) Diabetes panel 11/12/21 11/13/21 Range/Units 19:25 06:38 Sodium 134 L 133 L (137-145) mmol/L Potassium 4.1 4.0 (3.5-5.1) mmol/L Chloride 94 L 99 (98-107) mmol/L Carbon Dioxide 26 24 (22-30) mmol/L BUN 21 H 20 (9-20) mg/dL Creatinine 1.60 H 1.36 H (0.66-1.25) mg/dL Glucose 131 H 123 H (74-99) mg/dL Calcium 9.4 8.9 (8.4-10.2) mg/dL AST 23 18 (17-59) U/L ALT 32 24 (4-49) U/L Alkaline Phosphatase 40 37 L (38-126) U/L Total Protein 7.3 6.4 (6.3-8.2) g/dL Albumin 4.6 3.8 (3.5-5.0) g/dL Calcium panel 11/12/21 11/13/21 Range/Units 19:25 06:38 Calcium 9.4 8.9 (8.4-10.2) mg/dL Albumin 4.6 3.8 (3.5-5.0) g/dL Pituitary panel 11/12/21 11/13/21 Range/Units 19:25 06:38 Sodium 134 L 133 L (137-145) mmol/L Potassium 4.1 4.0 (3.5-5.1) mmol/L Chloride 94 L 99 (98-107) mmol/L Carbon Dioxide 26 24 (22-30) mmol/L BUN 21 H 20 (9-20) mg/dL Creatinine 1.60 H 1.36 H (0.66-1.25) mg/dL Glucose 131 H 123 H (74-99) mg/dL Calcium 9.4 8.9 (8.4-10.2) mg/dL Adrenal panel 11/12/21 11/13/21 Range/Units 19:25 06:38 Sodium 134 L 133 L (137-145) mmol/L Potassium 4.1 4.0 (3.5-5.1) mmol/L Chloride 94 L 99 (98-107) mmol/L Carbon Dioxide 26 24 (22-30) mmol/L BUN 21 H 20 (9-20) mg/dL Creatinine 1.60 H 1.36 H (0.66-1.25) mg/dL Glucose 131 H 123 H (74-99) mg/dL Calcium 9.4 8.9 (8.4-10.2) mg/dL Total Bilirubin 0.9 0.8 (0.2-1.3) mg/dL AST 23 18 (17-59) U/L ALT 32 24 (4-49) U/L Alkaline Phosphatase 40 37 L (38-126) U/L Total Protein 7.3 6.4 (6.3-8.2) g/dL Albumin 4.6 3.8 (3.5-5.0) g/dL Assessment and Plan Assessment: 46-year-old male with history of a 6 mm left-sided distal ureteral stone. Having intractable pain, had 2 ED presentation for pain. Evidence of forniceal rupture on CT. Discussed with him given his intractable pain the option of left-sided ureteroscopy with holmium laser. Alternatively ESWL and medical expulsive therapy was also discussed with him. He agreed to proceed with left- sided ureteroscopy with holmium laser. Discussed risk which includes but not limited to bleeding, infection, injury to ureter. Keep NPO -OR for left-sided ureteroscopy, holmium laser lithotripsy, stone basketing and stent
--- NOTE | 2021-11-13 12:55 | P.PN ---
Progress Note - Text Progress Note Date: 11/13/21 Patient was seen and examined. No acute events overnight. Patient continues to report left-sided flank pain. Pain is 7-8 out of 10 in severity. He denies any chest pain, shortness breath or palpitations. No nausea or vomiting. No fever or chills. General: [non toxic], [no distress], [appears at stated age] Derm: [warm], [dry] Head: [atraumatic], [normocephalic], [symmetric] Eyes: [EOMI], [no lid lag], [anicteric sclera] Mouth: [no lip lesion], [mucus membranes moist] Cardiovascular: [S1S2 reg], [no murmur] Lungs: [CTA bilateral], [no rhonchi, no rales] , [no accessory muscle use] Abdominal: [soft], [ nontender to palpation] Ext: [no gross muscle atrophy], [no edema], [no contractures] Neuro: [no focal neuro deficits] Psych: [Alert], [oriented], [appropriate affect] #Left hydronephrosis #Obstructive left ureteral stone #Ruptured left calyx #Leukocytosis #Hyponatremia #Dyslipidemia Pain management with Dilaudid as needed for pain. Continue Flomax. Plans for OR for left-sided ureteroscopy, holmium laser lithotripsy, stone basketing and stent. Leukocytosis likely reactive. Urinalysis negative. Continue Rocephin for now. Restart fenofibrate and Crestor for dyslipidemia. Heparin for DVT prophylaxis. Patient would like to be FULL CODE. Anticipate DC in 1-2 days with improvement in renal function and adequate pain control.
[2021-11-13] MEDS ORDERED: IV FLUID CONTINUATION 600 ML IV ONE (14:39)
[2021-11-13] MEDS ORDERED: ONDANSETRON 4 MG/2 ML VIAL IVP ONE (14:43)
[2021-11-13] MEDS ORDERED: DEXAMETHASONE SOD PHOSPHATE 4 MG/ML 1 ML VIAL IVP ONE (14:43)
[2021-11-13] MEDS ORDERED: NEOSTIGMINE 1 MG/ML 10 ML VIAL ONE (16:22)
[2021-11-13] MEDS ORDERED: MIDAZOLAM 2 MG/2 ML VIAL ONE (16:22)
[2021-11-13] MEDS ORDERED: PROPOFOL 10 MG/ML 20 ML VIAL IV ONE (16:22)
[2021-11-13] MEDS ORDERED: GLYCOPYRROLATE 0.2 MG/ML 2 ML VIAL ONE (16:22)
[2021-11-13] MEDS ORDERED: fentaNYL (PF) 50 MCG/ML 2 ML AMP ONE (16:22)
[2021-11-13] MEDS ORDERED: LIDOCAINE 2% INJ 20 MG/ML (2 ML VIAL) ONE (16:22)
[2021-11-13] MEDS ORDERED: ROCURONIUM 10 MG/ML (5 ML VIAL) IV ONE (16:22)
[2021-11-13] MEDS ORDERED: LIDOCAINE 4% LTA KIT (4 ML) TOPICAL ONE (16:22)
[2021-11-13] MEDS ORDERED: SUCCINYLCHOLINE CHLORIDE 200 MG/10 ML VIAL IV ONE (16:22)
[2021-11-13] MEDS ORDERED: SODIUM CHLORIDE 0.9% 100 ML with ceFAZolin 2,000 MG IV ONE ×2 (16:40)
[2021-11-13] MEDS ORDERED: LACTATED RINGERS 1,000 ML IV ONE (16:53)
--- NOTE | 2021-11-13 17:18 | P.OP ---
Date of Procedure: 11/13/21 Preoperative Diagnosis: Left ureteral stone Postoperative Diagnosis: same Procedure(s) Performed: cystoscopy Left ureteroscopy, holmium laser lithotripsy, stone basketing and stent insertion Implants: 4.8-Persian by 26 cm stent in the left ureter left on a string Anesthesia: ROYCE Surgeon: Rolf Long Estimated Blood Loss (ml): 5 Pathology: other (left ureteral stone) Condition: stable Indications for Procedure: 46-year-old male with history of a 6 mm left-sided distal ureteral stone. Having intractable pain, had 2 ED presentation for pain. Evidence of forniceal rupture on CT. Discussed with him given his intractable pain the option of left-sided ureteroscopy with holmium laser. Alternatively ESWL and medical expulsive therapy was also discussed with him. He agreed to proceed with left- sided ureteroscopy with holmium laser. Discussed risk which includes but not limited to bleeding, infection, injury to ureter. Operative Findings: Left distal ureteral stone Description of Procedure: Patient brought to the operating room, general anesthesia was induced. He was prepped and draped in sterile fashion and placed in dorsal lithotomy position. A cystoscopy fitted with a 17-Persian sheath was inserted per urethra, cystoscopy was performed which showed no abnormality within the bladder. Of note the prostate was mildly obstructive. At this time the cystoscope was withdrawn and a semirigid ureteroscope was advanced through the urethra and up the left ureteral orifice, a stone was encountered in the distal ureter. Using the holmium laser the stone was fragmented into small fragments, sizable fragments were removed using the stone basket. At this time the ureteroscope was advanced all the way up to the proximal ureter which showed no additional stones or injury to the ureter. Pullback ureteroscopy was performed which showed no injury to the ureter or any ureteral fragments. There was ureteral edema at the site of stone. As ureteroscope was withdrawn and a sensor wire was passed through. Next a ureteral stent was passed over the wire, the proximal curl was visualized on fluoroscopy and the distal curl was visualized using cystoscope. The bladder was emptied at the end of the case. The stent was left on a string and taped to the patient penis. Patient tolerated the procedure well was taken to recovery in stable condition [facility]OCK[employer] Report: Procedure Acuity: urgent Stone Size and Location: left distal ureter Ureteral Dilation: no Ureteral Access Sheath Used: no Stone Sent for Analysis: yes All Stones/Fragments Were Removed with a Basket: yes Complications: none Preoperative Antibiotics Given: Yes Stent Placed: yes If Stent Placed, Was String Left Attached: yes If Stent Placed, When is it to be Removed: 1 week Discharge Medications: patient is admitted as an inpatient
[2021-11-13] MEDS: TAMSULOSIN 0.4 MG CAP.ER.24H PO SCH (18:30)
[2021-11-13] MEDS: ATORVASTATIN 80 MG TAB PO SCH (20:49)
[2021-11-14] MEDS: HEPARIN SODIUM,PORCINE/PF 5,000 UNIT/0.5 ML SYRINGE SQ SCH ×3 (01:14→14:39)
--- NOTE | 2021-11-14 08:17 | FL ---
Fluoroscopy INDICATION: Pain FINDINGS: Fluoroscopy time: 10 seconds. Images obtained: 1. IMPRESSIONS: 1. Documentation of fluoroscopy.
[2021-11-14 08:43] LABS: HCT 38.9 % (39.0-53.0); HGB 12.6 gm/dL (13.0-17.5); MCH 30.1 pg (25.0-35.0); MCHC 32.5 g/dL (31.0-37.0); MCV 92.6 fL (80.0-100.0); Mean Platelet Volume 7.8; Platelet Count 208 k/uL (150-450); RDW 13.4 % (11.5-15.5); WBC 10.1 k/uL (3.8-10.6)
[2021-11-14 08:56] LABS: African American GFR (CKD) >90 (>60 ml/min/1.73 sqM); Anion Gap 13 mmol/L; Blood Urea Nitrogen 16 mg/dL (9-20); Calcium 8.8 mg/dL (8.4-10.2); Carbon Dioxide 24 mmol/L (22-30); Chloride 100 mmol/L (98-107); Glucose 214 mg/dL (74-99); Non-African American GFR(CKD) >90 (>60 ml/min/1.73 sqM); Potassium 4.2 mmol/L (3.5-5.1); Sodium 137 mmol/L (137-145)
[2021-11-14] MEDS: FENOFIBRATE 160 MG TAB PO SCH (09:21)
--- NOTE | 2021-11-14 10:58 | P.DS ---
Providers Date of admission: 11/12/21 20:57 Expected date of discharge: 11/14/21 Attending physician: Russ Connolly MD Consults: 11/12/21 20:57 Consult Physician Urgent Consulting Provider: Rolf Long Consult Reason/Comments: Obstructing renal calculus and hydronephrosis, left Do you want consulting provider notified?: Already Contacted Primary care physician: Stated None Hospital Course: 46-year-old male with prediabetes, hyperlipidemia Patient comes in with worsening left-sided abdominal pain. He was diagnosed with kidney stones 2 days ago however the facility he was at not have a CAT scan he was discharged with Flomax and Sparks to help control his pain however he notes that these medications did nothing for his pain which was getting worse he denies any hematuria denies any dysuria denies any fevers or chills denies any nausea or vomiting denies any trouble breathing or chest pain. Denies any history of kidney stones In the emergency department computed tomography scan of the abdomen was done showed mild left hydronephrosis with 6 mm distal left ureteral stone. With free fluid around the kidney possibly ruptured left calyx. These findings were discussed with urology who will see the patient in the hospital. Recommended starting the patient on antibiotics. Patient underwent cystoscopy, Left ureteroscopy, holmium laser lithotripsy, stone basketing and stent insertion with Urology. Patient was seen and examined. No acute events overnight. He reports complete resolution of his abdominal pain after procedure. Denies any nausea vomiting. No fever or chills. Wanting to go home. He is advised follow-up with his PCP within 1-2 days of discharge. Follow-up with urology within 1 week of discharge. Take Keflex for 7 days. General: [non toxic], [no distress], [appears at stated age] Derm: [warm], [dry] Head: [atraumatic], [normocephalic], [symmetric] Eyes: [EOMI], [no lid lag], [anicteric sclera] Mouth: [no lip lesion], [mucus membranes moist] Cardiovascular: [S1S2 reg], [no murmur] Lungs: [CTA bilateral], [no rhonchi, no rales] , [no accessory muscle use] Abdominal: [soft], [ nontender to palpation] Ext: [no gross muscle atrophy], [no edema], [no contractures] Neuro: [no focal neuro deficits] Psych: [Alert], [oriented], [appropriate affect] Discharge Diagnosis: #Left hydronephrosis #Obstructive left ureteral stone #Ruptured left calyx #Leukocytosis #Hyponatremia #Dyslipidemia Pertinent Studies: CT abdomen and pelvis Procedures: Cystoscopy, Left ureteroscopy, holmium laser lithotripsy, stone basketing and stent insertion Patient Condition at Discharge: Stable Plan - Discharge Summary Discharge Rx Participant: Yes New Discharge Prescriptions: New Cephalexin [Keflex] 250 mg PO Q6HR #28 cap Acetaminophen Tab [Tylenol] 650 mg PO Q6HR PRN tab PRN Reason: Mild Pain Or Fever > 100.5 Continue Fenofibrate,Micronized [Fenofibrate] 134 mg PO BID Rosuvastatin Calcium [Crestor] 40 mg PO HS Tamsulosin [Flomax] 0.4 mg PO HS Ondansetron Odt [Zofran ODT] 4 mg PO Q4H PRN PRN Reason: Nausea HYDROcodone/APAP 5-325MG [Sparks 5-325] 1 tab PO Q4HR PRN #14 tab PRN Reason: Pain Discontinued Celecoxib [CeleBREX] 200 mg PO HS PRN PRN Reason: Pain Discharge Medication List Fenofibrate,Micronized [Fenofibrate] 134 mg PO BID 03/17/19 [History] Rosuvastatin Calcium [Crestor] 40 mg PO HS 03/17/19 [History] Ondansetron Odt [Zofran ODT] 4 mg PO Q4H PRN 11/12/21 [History] Tamsulosin [Flomax] 0.4 mg PO HS 11/12/21 [History] Acetaminophen Tab [Tylenol] 650 mg PO Q6HR PRN tab 11/14/21 [Rx] Cephalexin [Keflex] 250 mg PO Q6HR #28 cap 11/14/21 [Rx] HYDROcodone/APAP 5-325MG [Sparks 5-325] 1 tab PO Q4HR PRN #14 tab 11/14/21 [Rx] Follow up Appointment(s)/Referral(s): Rolf Long MD [STAFF PHYSICIAN] - 1 Week None,Stated [Primary Care Provider] - 1-2 days Activity/Diet/Wound Care/Special Instructions: Diet: Regular FU with PCP within 1-2 days of discharge. Take all medications as advised. FU with Urology within 1 week of discharge. Come back to the ED for worsening abdominal pain, intractable nausea and vomiting, fever > 100.4 not relieved with Tylenol. Discharge Disposition: HOME SELF-CARE
--- NOTE | 2021-11-14 14:30 | P.PN ---
Subjective Progress Note Date: 11/14/21 S/P left ureteroscopy with holmium laser stent insertion. Pain significantly improved post surgery, Denies any flank pain, or gross hematuria Objective - Vital Signs Vital signs: Vital Signs Temp 99.1 F 11/14/21 07:18 Pulse 60 11/14/21 07:18 Resp 18 11/14/21 07:18 BP 131/85 11/14/21 07:18 Pulse Ox 96 11/14/21 07:18 FiO2 Intake & Output 11/13/21 11/14/21 11/14/21 18:59 06:59 18:59 Intake Total 950 Output Total 0 200 Balance 950 -200 Intake: IV 950 Output: Urine 200 Estimated Blood Loss 0 Other: Voiding Method Toilet Toilet Toilet Urinal Urinal Urinal - Labs CBC & Chem 7: 11/14/21 08:26 11/14/21 08:26 Labs: Abnormal Lab Results - Last 24 Hours (Table) 11/14/21 11/14/21 Range/Units 08:26 08:26 RBC 4.20 L (4.30-5.90) m/uL Hgb 12.6 L (13.0-17.5) gm/dL Hct 38.9 L (39.0-53.0) % Glucose 214 H (74-99) mg/dL Assessment and Plan Assessment: 46-year-old male with history of a 6 mm left-sided distal ureteral stone. underwent left sided ureteroscopy with holmium laser stent insetion. doing well -Ok for discharge from urology standpoint , F/U one week for stent removal.
[2021-11-14 14:53] VITALS: BP 136/76; PULSE 70; RESP 17; TEMP 98.6
== END 2021-11-14 14:30 | disposition home or self-care (01) | DRG 660 ==
LOC: EC 14:34 → 4SSUR 20:57
PROVIDERS: ADMIT Internal Medicine; ATTEND Internal Medicine
PROC: 0TC78ZZ Extirpation of Matter from Left Ureter, Via Natural or Artificial Opening Endoscopic (ICD-10-PCS; principal; 2021-11-12)
PROC: 0T778DZ Dilation of Left Ureter with Intraluminal Device, Via Natural or Artificial Opening Endoscopic (ICD-10-PCS; principal; 2021-11-12)
DX: N13.2 Hydronephrosis with renal and ureteral calculous obstruction (principal); E87.1 Hypo-osmolality and hyponatremia; D72.829 Elevated white blood cell count, unspecified; E78.5 Hyperlipidemia, unspecified; N17.9 Acute kidney failure, unspecified; R73.03 Prediabetes; N28.89 Other specified disorders of kidney and ureter; Z79.899 Other long term (current) drug therapy
CPT/HCPCS: 36415; 74176; 80048; 80053; 81001; 82365; 85025; 85027; 96361; 96365; 96375; 99285